=== PATIENT | female | born 1970 | race Two or more races ===

== ENCOUNTER 2017-04-20 10:35 | Outpatient (CLI) | payer OTHER ==
[~2017-04-20 10:35] MED LIST: ASA81 MG; CATAFLAM50 MG; FOLIC ACID0.4 MG; LOTREL 10-20 MG1 CAP; PREDNISOLONE5 GM; VITAMIN B COMPL
== END 2017-04-20 10:45 | disposition home or self-care (01) ==
LOC: SONOGRAMA 10:35
DX: R10.9 Unspecified abdominal pain (principal)

== ENCOUNTER 2017-05-05 12:34 | Inpatient (IN) | payer OTHER ==
[~2017-05-05] VITALS: Ht 162.6 cm; Wt 62.6 kg
[2017-05-05] MEDS ORDERED: SYNTHROID50 MCG (12:40)
[2017-05-07] MEDS ORDERED: AZITHROMYCIN500 MG PO (09:07)
[2017-05-07] MEDS ORDERED: FOLIC ACID1 MG PO (09:07)
[2017-05-07] MEDS ORDERED: HYDREA500 M1 PO (09:07)
[2017-05-07] MEDS ORDERED: ACETAMINOPHEN500 M1 PO (09:07)
[2017-05-07] MEDS ORDERED: LOTREL 10-20 M1 EACH PO (09:09)
== END 2017-05-07 10:36 | disposition home or self-care (01) | DRG 812 ==
LOC: ER 12:34 → MEDJ 05-06 08:02
PROC: 30233N1 Transfusion of Nonautologous Red Blood Cells into Peripheral Vein, Percutaneous Approach (ICD-10-PCS; principal; 2017-05-06)
DX: D57.819 Other sickle-cell disorders with crisis, unspecified (principal); R10.2 Pelvic and perineal pain

== ENCOUNTER 2018-01-24 07:27 | Outpatient (CLI) | payer OTHER ==
[~2018-01-24 07:27] MED LIST changes: +ACETAMINOPHEN500 M1 PO; +AZITHROMYCIN500 MG PO; +FOLIC ACID1 MG PO; +HYDREA500 M1 PO; +LOTREL 10-20 M1 EACH PO; +SYNTHROID50 MCG
== END 2018-01-24 07:33 | disposition home or self-care (01) ==
LOC: TOM 07:27
DX: D57.1 Sickle-cell disease without crisis (principal)
CPT/HCPCS: 74177; 77075; Q9965

== ENCOUNTER → 2018-01-26 | Outpatient (CLI) | payer OTHER | END | disposition home or self-care (01) | LOC: SONOGRAMA 08:00 | DX: D57.80 Other sickle-cell disorders without crisis (principal) ==

== ENCOUNTER 2018-08-08 08:03 | Outpatient (CLI) | payer OTHER | END 2018-08-08 09:51 | disposition home or self-care (01) | LOC: SONOGRAMA 08:03 | DX: E04.2 Nontoxic multinodular goiter (principal) ==

== ENCOUNTER 2018-08-24 07:14 | Outpatient (CLI) | payer OTHER | END 2018-08-24 09:22 | disposition home or self-care (01) | LOC: NUCLEAR 07:14 | DX: R00.2 Palpitations (principal); I20.8 Other forms of angina pectoris; R06.09 Other forms of dyspnea | CPT/HCPCS: 78452; 93017; A9500; J0153 ==

== ENCOUNTER 2018-09-12 11:32 | Outpatient (CLI) | payer OTHER | END 2018-09-12 15:00 | disposition home or self-care (01) | LOC: LAB 11:32 | DX: J11.1 Influenza due to unidentified influenza virus with other respiratory manifestations (principal); D64.0 Hereditary sideroblastic anemia; J44.9 Chronic obstructive pulmonary disease, unspecified ==

== ENCOUNTER → 2022-02-18 | Emergency (ER) | payer OTHER ==
[~2022-02-18] VITALS: Ht 162.6 cm; Wt 65.3 kg
== END | disposition home or self-care (01) ==
LOC: ER 15:57
DX: S82.032A Displaced transverse fracture of left patella, initial encounter for closed fracture (principal); W19.XXXA Unspecified fall, initial encounter; Y93.9 Activity, unspecified; Y92.019 Unspecified place in single-family (private) house as the place of occurrence of the external cause

== ENCOUNTER 2022-02-20 20:33 | Inpatient (IN) | payer OTHER ==
[~2022-02-20] VITALS: Ht 157.5 cm; Wt 64.4 kg
[2022-02-20] MEDS ORDERED: SYNTHROID50 MCG PO (22:04)
[2022-02-20] MEDS ORDERED: KETOROLAC TROME10 MG PO (22:04)
[2022-02-20] MEDS ORDERED: LISINOPRIL2.5 MG PO (22:04)
[2022-02-20] MEDS ORDERED: HYDROXYUREA500 MG PO (22:04)
--- NOTE | 2022-02-20 22:08 | NUR ---
SE RECIBE ALERTA X3.PTE REFIERE SENTIR MUCHO DOLOR EN LA PIERNA IZQUIERDA LOKESH DESDE HACE HARSHAL SEMANA.SE TIFFANY S/V Y SE UBICA.
--- NOTE | 2022-02-21 00:09 | NUR ---
PTE FEMENINA ALERTA Y ORIENTADA EN LAS CHRISTOPHER ESFERAS ES EVALUADA POR . SE ORIENTA SOBRE ORDENES DE [place] REFIERE COMPRENDER. SE COLECTAN MUESTRAS DE LABORATORIOS Y SE CANALIZA VENA BAJO MEDIDAS ASEPTICAS. SE ADMINISTRAN MEDICAMENTOS, BAJO MEDIDAS ASEPTICAS.
--- NOTE | 2022-02-21 00:30 | NUR ---
0015 SE CONTACTA A [facility] PARA CONCER HX DE PTE. REFIERE PTE NO POSEE HX. SE REQUIZAN 2 UNIDADES PRBC'S PARA TRANSFUSION POR ORDEN MEDICA DE . SE COELCTAN TUBOS PILOTOS, BAJO MEDIDAS ASEPTICAS. SE ROTULAN Y SE ENVIAN A LABORATORIO APC.
[2022-02-23] MEDS ORDERED: CETIRIZINE HCL10 MG (10:57)
[2022-02-25] MEDS ORDERED: DUI500 PO (07:35)
[2022-02-25] MEDS ORDERED: ASA325 M1 PO (07:35)
[2022-02-25] MEDS ORDERED: PERCOCET 5-3251 EACH PO (07:35)
== END 2022-02-25 15:02 | disposition home or self-care (01) | DRG 463 ==
LOC: ER 20:33 → SEC-K 02-21 00:41 → SURH 02-21 00:41
PROVIDERS: Orthopaedic Surgery; ADMIT Internal Medicine; ATTEND Internal Medicine
PROC: 30233N1 Transfusion of Nonautologous Red Blood Cells into Peripheral Vein, Percutaneous Approach (ICD-10-PCS; 2022-02-21)
PROC: 0QSF04Z Reposition Left Patella with Internal Fixation Device, Open Approach (ICD-10-PCS; 2022-02-24)
PROC: BQ18ZZZ Fluoroscopy of Left Knee (ICD-10-PCS; 2022-02-24)
PROC: 0JBP0ZZ Excision of Left Lower Leg Subcutaneous Tissue and Fascia, Open Approach (ICD-10-PCS; principal; 2022-02-24 12:00)
DX: S82.042A Displaced comminuted fracture of left patella, initial encounter for closed fracture (principal); D57.219 Sickle-cell/Hb-C disease with crisis, unspecified; M25.062 Hemarthrosis, left knee; M23.42 Loose body in knee, left knee; Z20.822 Contact with and (suspected) exposure to COVID-19

== ENCOUNTER 2022-07-28 10:33 | Outpatient (CLI) | payer OTHER ==
[~2022-07-28 10:33] MED LIST changes: +ASA325 M1 PO; +CETIRIZINE HCL10 MG; +DUI500 PO; +HYDROXYUREA500 MG PO; +KETOROLAC TROME10 MG PO; +LISINOPRIL2.5 MG PO; +PERCOCET 5-3251 EACH PO; +SYNTHROID50 MCG PO
== END 2022-07-28 10:37 | disposition home or self-care (01) ==
LOC: RAD 10:33
PROVIDERS: ATTEND Physical Medicine & Rehabilitation
DX: M17.12 Unilateral primary osteoarthritis, left knee (principal); M25.562 Pain in left knee

== ENCOUNTER 2023-03-05 16:07 | Inpatient (IN) | payer OTHER ==
[~2023-03-05] VITALS: Ht 162.6 cm; Wt 63.5 kg
[2023-03-05 17:35] LABS: HEMOGLOBIN 10.4 g/dL (12.0-15.00); MEAN CELL VOLUME 116.7 fL (80.00-100.00); MEAN CORPUSCULAR HEMOGLOBIN 40.6 pg (27.00-32.0); MEAN CORPUSCULAR HGB CONC 34.8 g/dl (32.0-36.0); PLATELET COUNT 252 K/uL (150-450); RED BLOOD COUNT 2.57 M/uL (4.00-6.00); RED CELL DISTRIBUTION WIDTH 15.8 % (11.5-14.5)
[2023-03-05 17:45] LABS: INR 1.02; PARTIAL THROMBOPLASTIN TIME 26.2 SECONDS (22.0-34.0); PROTHROMBIN TIME 10.7 SECONDS (9.0-11.5)
[2023-03-05 17:49] LABS: CALCIUM 8.6 mg/dL (8.5-10.1); CREATININE SERUM 0.57 mg/dL (0.55-1.02); GFR 111.82; POTASSIUM 4.12 mEq/L (3.5-5.1)
[2023-03-05 18:58] LABS: URINE APPEARANCE Clear; URINE BILIRRUBIN Negative (NEGATIVE); URINE BLOOD Negative; URINE COLOR Yellow; URINE GLUCOSE Negative (NEGATIVE); URINE LEUKOCYTE Negative; URINE NITRATE Negative; URINE PROTEIN Negative (NEGATIVE)
[2023-03-05 19:01] LABS: URINE BACTERIA 420.7 uL (0.0-1933); URINE EPITHELIAL CELLS 34.3 uL (0.0-38.8); URINE RBC 2.8 uL (0.0-20.8); URINE WBC 10.9 uL (0.0-23.2)
[2023-03-05 23:25] LABS: T4 FREE 1.05 NG/ML (0.76-1.46); TSH 1.26 uIU/mL (0.358-3.74)
[2023-03-07 08:48] LABS: BILIRUBIN TOTAL 1.08 mg/dL (0.3-1.2); CALCIUM 8.2 mg/dL (8.5-10.1); CREATININE SERUM 0.49 mg/dL (0.55-1.02); FERRITIN 114.4 NG/ML (8-252); GFR 133.14; GLOBULINA 3.6 G/DL (2.4-3.5); MAGNESIUM 2.2 mg/dL (1.8-2.4); PHOSPHOROUS 3.2 mg/dL (2.5-4.9); POTASSIUM 4.5 mEq/L (3.5-5.1); TOTAL PROTEIN 6.6 gm/dL (6.4-8.2)
[2023-03-07 08:51] LABS: C-REACTIVE PROTEIN 0.39 MG/DL (0.00-0.29)
[2023-03-07 09:34] LABS: MEAN CELL VOLUME 118.7 fL (80.00-100.00); MEAN CORPUSCULAR HGB CONC 34.1 g/dl (32.0-36.0); PLATELET COUNT 195 K/uL (150-450); RED BLOOD COUNT 2.02 M/uL (4.00-6.00); RED CELL DISTRIBUTION WIDTH 16.2 % (11.5-14.5)
[2023-03-07 09:36] LABS: HEMOGLOBIN 8.2 g/dL (12.0-15.00); MEAN CORPUSCULAR HEMOGLOBIN 40.5 pg (27.00-32.0)
[2023-03-07 09:57] LABS: ERYTHROCYTE SEDIMENTATION RATE 16 mm/hr
[2023-03-09 06:09] LABS: HEMATOCRIT 26.6 % (36.0-45.00); HEMOGLOBIN 9.3 g/dL (12.0-15.00); MEAN CELL VOLUME 119.2 fL (80.00-100.00); MEAN CORPUSCULAR HEMOGLOBIN 41.7 pg (27.00-32.0); MEAN CORPUSCULAR HGB CONC 34.9 g/dl (32.0-36.0); PLATELET COUNT 185 K/uL (150-450); RED BLOOD COUNT 2.23 M/uL (4.00-6.00); RED CELL DISTRIBUTION WIDTH 15.8 % (11.5-14.5)
[2023-03-09 06:49] LABS: ALBUMIN 3.4 gm/dL (3.4-5.0); BILIRUBIN TOTAL 1.58 mg/dL (0.3-1.2); CALCIUM 8.8 mg/dL (8.5-10.1); CREATININE SERUM 0.52 mg/dL (0.55-1.02); GFR 124.32; GLOBULINA 4.1 G/DL (2.4-3.5); POTASSIUM 4.11 mEq/L (3.5-5.1); TOTAL PROTEIN 7.5 gm/dL (6.4-8.2)
[2023-03-09] MEDS ORDERED: HYDREA500 M1 PO (12:57)
[2023-03-09] MEDS ORDERED: LEVOTHYROXINE50 MCG PO (12:57)
[2023-03-09] MEDS ORDERED: ZESTRIL10 M1 PO (12:58)
[2023-03-09] MEDS ORDERED: ELIQUIS5 MG PO (12:58)
[2023-03-09] MEDS ORDERED: TOPROL XL25 M1 PO (12:59)
== END 2023-03-09 14:00 | disposition home or self-care (01) | DRG 179 ==
LOC: ER 16:07 → MEDJ 20:14 → ICU-2 20:14 → MEDJ 03-06 11:26
PROVIDERS: General Practice; ADMIT Internal Medicine; ATTEND Internal Medicine
PROC: B24BZZZ Ultrasonography of Heart with Aorta (ICD-10-PCS; 2023-03-05)
PROC: 4A12X4Z Monitoring of Cardiac Electrical Activity, External Approach (ICD-10-PCS; 2023-03-06)
PROC: XW033E5 Introduction of Remdesivir Anti-infective into Peripheral Vein, Percutaneous Approach, New Technology Group 5 (ICD-10-PCS; principal; 2023-03-07)
DX: U07.1 COVID-19 (principal); I48.0 Paroxysmal atrial fibrillation; E03.9 Hypothyroidism, unspecified; D57.1 Sickle-cell disease without crisis; I11.9 Hypertensive heart disease without heart failure; D72.820 Lymphocytosis (symptomatic)

== ENCOUNTER 2024-12-22 08:00 | Outpatient (CLI) | payer OTHER ==
[~2024-12-22] VITALS: Ht 160 cm; Wt 63.5 kg
[~2024-12-22 08:00] MED LIST changes: +ELIQUIS5 MG PO; +LEVOTHYROXINE50 MCG PO; +TOPROL XL25 M1 PO; +ZESTRIL10 M1 PO
[2024-12-22 11:03] VITALS: BP 138/84
[2024-12-22 11:22] LABS: BASO % 0.5 % (0.1-1.2); EOS # 0.61 (0.04-0.54); EOS % 9.8 % (0.7-7.0); LYMPH # 3.32 (1.18-3.74); LYMPH % 53.5 % (19.3-53.1); MEAN PLATELET VOLUME 11.70 fl (9.4-12.4); MONO # 1.00 (0.24-0.82); NEUT # 1.23 (1.56-6.13); NEUT % 19.9 % (34.0-71.1); RED CELL DISTRIBUTION WIDTH 16.5 % (11.6-14.4)
[2024-12-22 11:26] LABS: URINE APPEARANCE Clear; URINE BILIRRUBIN Negative (NEGATIVE); URINE BLOOD Negative; URINE COLOR Yellow; URINE GLUCOSE Negative (NEGATIVE); URINE KETONE Negative (NEGATIVE); URINE LEUKOCYTE Trace; URINE NITRATE Negative; URINE PROTEIN Negative (NEGATIVE); URINE UROBILINOGEN 1.0 E.U./dl
[2024-12-22 11:29] LABS: MONO % 16.1 % (4.7-12.5); URINE BACTERIA 126.0 uL (0.0-1933); URINE EPITHELIAL CELLS 4.2 uL (0.0-38.8); URINE WBC 2.1 uL (0.0-23.2)
[2024-12-22 11:47] LABS: ALT/SGPT 29.0 U/L (12-78); AST/SGOT 47.0 U/L (15-37); BILIRUBIN TOTAL 1.59 mg/dL (0.3-1.2); BUN CREA RATIO 28.0 (7.0-25.0); CREATININE SERUM 0.61 mg/dL (0.55-1.02); GFR 102.99; GLOBULINA 4.3 G/DL (2.4-3.5); GLUCOSE FASTING 90.0 mg/dL (65-100); OSMOLALITY SERUM 282.0 MOSM/KG (275-295)
[2024-12-22 11:48] LABS: URINE CAST 0.00 uL (0.0-1.40); URINE RBC 1.3 uL (0.0-20.8)
[2024-12-22 11:52] LABS: INR 1.06
[2024-12-25] MEDS ORDERED: CEFAZOLIN SODIUM 1,000 MG VIAL ONE (13:03)
== END 2024-12-22 11:00 | disposition home or self-care (01) ==
LOC: RAD 08:00 → ADM 10:15 → RAD 11:00 → CIR.AMB 12-25 07:00 → EDSTATUS 12-25 10:15 → CIR.AMB 12-25 10:15
PROVIDERS: ATTEND Student in an Organized Health Care Education/Training Program
DX: C50.912 Malignant neoplasm of unspecified site of left female breast (principal); D65 Disseminated intravascular coagulation [defibrination syndrome]; I10 Essential (primary) hypertension

== ENCOUNTER 2024-12-22 19:55 | Inpatient (IN) | payer OTHER ==
[~2024-12-22] VITALS: Ht 160 cm; Wt 63.5 kg
--- NOTE | 2024-12-22 21:32 | NUR ---
PACIENTE EN COMPANIA DE FAMILIAR, LLEGA A GENOVEVA DE EMERGENCIAS POR REFERIDO MEDICO, DR URBINA TRAS PRESENTAR HEMOGLOBINA EN 7.6 PACIENTE CON HX DE SICKLE CELL Y RECIENTEMENTE DX CA SENO L+ SE MIDEN S/V Y SE UBICA.
[2024-12-22] MEDS ORDERED: ACETAMINOPHEN 500 MG GEL..CAP PO PRN (22:15)
[2024-12-22] MEDS ORDERED: 0.9 % SODIUM CHLORIDE 1,000 ML IV SCH (22:15)
[2024-12-23 04:56] LABS: BASO % 0.4 % (0.1-1.2); EOS # 0.74 (0.04-0.54); EOS % 10.1 % (0.7-7.0); LYMPH # 4.15 (1.18-3.74); LYMPH % 56.8 % (19.3-53.1); MEAN PLATELET VOLUME 11.40 fl (9.4-12.4); MONO # 0.96 (0.24-0.82); NEUT # 1.41 (1.56-6.13); NEUT % 19.3 % (34.0-71.1); RED CELL DISTRIBUTION WIDTH 16.2 % (11.6-14.4)
[2024-12-23 05:03] LABS: MONO % 13.1 % (4.7-12.5)
[2024-12-23 05:08] LABS: INR 1.05
[2024-12-23 05:30] LABS: ALT/SGPT 24.0 U/L (12-78); AST/SGOT 48.0 U/L (15-37); BILIRUBIN TOTAL 1.54 mg/dL (0.3-1.2); BUN CREA RATIO 32.0 (7.0-25.0); CREATININE SERUM 0.63 mg/dL (0.55-1.02); GFR 99.23; GLOBULINA 4.1 G/DL (2.4-3.5); GLUCOSE FASTING 99.0 mg/dL (65-100); OSMOLALITY SERUM 288.0 MOSM/KG (275-295)
[2024-12-23] MEDS ORDERED: LEVOTHYROXINE SODIUM 50 MCG TABLET PO SCH (06:00)
[2024-12-23 08:00] VITALS: BP 150/80; O2SAT 100
[2024-12-23] MEDS ORDERED: FAMOTIDINE/PF 20 MG in 0.9 % SODIUM CHLORIDE 8 ML IV PUSH SCH (09:00)
[2024-12-23] MEDS ORDERED: LISINOPRIL 10 MG TABLET PO SCH (09:00)
[2024-12-23] MEDS ORDERED: HYDROXYUREA 500 MG CAP PO SCH ×2 (09:00→17:00)
[2024-12-23] MEDS ORDERED: METHYLPREDNISOLONE SOD SUCC 40 MG VIAL IV NR (13:15)
[2024-12-23] MEDS ORDERED: DIPHENHYDRAMINE HCL 50 MG/ML VIAL 1ML IV NR (13:15)
[2024-12-23] MEDS ORDERED: METOPROLOL SUCCINATE 25 MG TAB.SR.24H PO STA (14:45)
[2024-12-23 15:56] VITALS: BP 154/72; O2SAT 100
[2024-12-23] MEDS ORDERED: ENOXAPARIN SODIUM 40 MG/0.4 ML SYRINGE SUBCUTANEO SCH (17:00)
[2024-12-24 00:03] VITALS: BP 121/74; O2SAT 97
[2024-12-24 07:55] LABS: BASO % 0.3 % (0.1-1.2); EOS # 0.00 (0.04-0.54); EOS % 0.0 % (0.7-7.0); LYMPH # 1.43 (1.18-3.74); LYMPH % 39.9 % (19.3-53.1); MEAN PLATELET VOLUME 12.10 fl (9.4-12.4); MONO # 0.12 (0.24-0.82); MONO % 3.4 % (4.7-12.5); NEUT # 2.01 (1.56-6.13); NEUT % 56.1 % (34.0-71.1)
[2024-12-24 08:00] VITALS: BP 127/72; O2SAT 99
[2024-12-24 08:15] LABS: RED CELL DISTRIBUTION WIDTH 21.9 % (11.6-14.4)
[2024-12-24] MEDS ORDERED: DIPHENHYDRAMINE HCL 50 MG/ML VIAL 1ML IV NR (08:45)
[2024-12-24] MEDS ORDERED: METOPROLOL SUCCINATE 25 MG TAB.SR.24H PO SCH (09:00)
[2024-12-24] MEDS ORDERED: METHYLPREDNISOLONE SOD SUCC 40 MG VIAL IV NR (13:15)
[2024-12-24 16:00] VITALS: BP 120/69; O2SAT 98
[2024-12-24 21:47] LABS: BASO % 0.1 % (0.1-1.2); EOS # 0.00 (0.04-0.54); EOS % 0.0 % (0.7-7.0); LYMPH # 1.70 (1.18-3.74); LYMPH % 14.3 % (19.3-53.1); MEAN PLATELET VOLUME 12.20 fl (9.4-12.4); MONO # 0.77 (0.24-0.82); MONO % 6.5 % (4.7-12.5); NEUT # 9.35 (1.56-6.13); NEUT % 78.5 % (34.0-71.1); RED CELL DISTRIBUTION WIDTH 22.2 % (11.6-14.4)
[2024-12-25 00:07] VITALS: BP 145/72; O2SAT 98
[2024-12-25 08:27] VITALS: BP 159/82; O2SAT 98
[2024-12-25] MEDS ORDERED: CEFAZOLIN SODIUM 1,000 MG VIAL IV ONE (14:15)
[2024-12-25] MEDS ORDERED: LIDOCAINE HCL 1%/EPINEPHRINE 20ML VIAL IJ ONE (14:15)
[2024-12-25] MEDS ORDERED: BUPIVACAINE HCL 30 ML VIAL IV ONE (14:15)
[2024-12-25] MEDS ORDERED: HEPARIN SODIUM,PORCINE 500 UNITS/5 ML VIAL IV ONE (14:15)
[2024-12-25] MEDS ORDERED: METOPROLOL SUCCINATE 25 MG TAB.SR.24H PO SCH (17:00)
[2024-12-25] MEDS ORDERED: LISINOPRIL 10 MG TABLET PO SCH (17:00)
[2024-12-25 20:40] VITALS: BP 132/81; O2SAT 99
[2024-12-25 21:08] VITALS: O2SAT 98
[2024-12-26 00:30] VITALS: BP 131/79; O2SAT 99
[2024-12-26 03:47] VITALS: O2SAT 87
[2024-12-26 08:35] VITALS: BP 107/73; O2SAT 97
[2024-12-26 08:51] VITALS: O2SAT 99
[2024-12-26] MEDS ORDERED: METOPROLOL SUCCINATE 25 MG TAB.SR.24H PO SCH (09:00)
[2024-12-26] MEDS ORDERED: APIXABAN 5 MG TABLET PO SCH (09:00)
[2024-12-26 14:00] VITALS: O2SAT 100
[2024-12-26] MEDS ORDERED: FAMOTIDINE/PF 20 MG in 0.9 % SODIUM CHLORIDE 8 ML IV PUSH SCH (21:00)
[2024-12-27] MEDS ORDERED: LISINOPRIL 10 MG TABLET PO SCH (09:00)
== END 2024-12-26 15:19 | disposition home or self-care (01) | DRG 803 ==
LOC: ER 19:55 → SEC-K 23:06 → SURH 23:06
PROVIDERS: General Practice; Student in an Organized Health Care Education/Training Program; ADMIT Internal Medicine; ATTEND Internal Medicine
PROC: 8E0ZXY6 Isolation (ICD-10-PCS; 2024-12-22)
PROC: 30233N1 Transfusion of Nonautologous Red Blood Cells into Peripheral Vein, Percutaneous Approach (ICD-10-PCS; 2024-12-23)
PROC: 05HM33Z Insertion of Infusion Device into Right Internal Jugular Vein, Percutaneous Approach (ICD-10-PCS; 2024-12-25)
PROC: B543ZZA Ultrasonography of Right Jugular Veins, Guidance (ICD-10-PCS; 2024-12-25)
PROC: B518YZA Fluoroscopy of Superior Vena Cava using Other Contrast, Guidance (ICD-10-PCS; 2024-12-25)
PROC: 4A12X4Z Monitoring of Cardiac Electrical Activity, External Approach (ICD-10-PCS; 2024-12-25)
PROC: 0JH60WZ Insertion of Totally Implantable Vascular Access Device into Chest Subcutaneous Tissue and Fascia, Open Approach (ICD-10-PCS; principal; 2024-12-25 12:00)
DX: D57.80 Other sickle-cell disorders without crisis (principal); I48.20 Chronic atrial fibrillation, unspecified; C50.919 Malignant neoplasm of unspecified site of unspecified female breast; D64.89 Other specified anemias; I10 Essential (primary) hypertension; E03.9 Hypothyroidism, unspecified; Z79.01 Long term (current) use of anticoagulants

== ENCOUNTER 2025-01-22 11:08 | Inpatient (IN) | payer OTHER ==
[~2025-01-22] VITALS: Ht 160 cm; Wt 63.5 kg
[2025-01-22] MEDS ORDERED: DEXAMETHASONE4 MG PO (13:12)
--- NOTE | 2025-01-22 13:13 | NUR ---
PTE REFIERE REFERIDO MEDICO DEL GIOVANI BERG PARA TRANSFUNDIR. SE LE MILAN S/V Y SE DOCUEMTA, SE UBICA EN [place] . PTE CON SICKLE CELL ANEMIA.
[2025-01-22] MEDS ORDERED: CYANOCOBALAMIN (VITAMIN B-12) 1,000 MCG TABLET PO SCH (14:05)
[2025-01-22] MEDS ORDERED: ENALAPRILAT DIHYDRATE 1.25 MG/ML VIAL IV PRN (14:15)
[2025-01-22 15:02] LABS: BASO % 0.3 % (0.1-1.2); EOS # 0.06 (0.04-0.54); EOS % 1.8 % (0.7-7.0); LYMPH # 2.34 (1.18-3.74); LYMPH % 70.9 % (19.3-53.1); MEAN PLATELET VOLUME 13.80 fl (9.4-12.4); MONO # 0.17 (0.24-0.82); MONO % 5.2 % (4.7-12.5); NEUT # 0.46 (1.56-6.13); NEUT % 13.9 % (34.0-71.1); RED CELL DISTRIBUTION WIDTH 18.5 % (11.6-14.4)
[2025-01-22 15:21] LABS: INR 1.08
[2025-01-22 15:23] LABS: ERYTHROCYTE SEDIMENTATION RATE 8 mm/hr (0-30)
[2025-01-22 15:24] VITALS: BP 130/80
[2025-01-22 15:26] LABS: ALT/SGPT 32 U/L (12-78); AST/SGOT 26 U/L (15-37); BILIRUBIN TOTAL 0.87 mg/dL (0.3-1.2); BUN CREA RATIO 43 (7.0-25.0); CREATININE SERUM 0.68 mg/dL (0.55-1.02); GFR 90.86; GLOBULINA 4.0 G/DL (2.4-3.5); GLUCOSE FASTING 104 mg/dL (65-100); LDH 295 U/L (84-246); OSMOLALITY SERUM 289 MOSM/KG (275-295)
[2025-01-22 15:59] VITALS: BP 120/69; O2SAT 100
[2025-01-22 16:17] LABS: BASOPHIL MAN 3.0 %; EOSINOPHIL MAN 2.0 %; LYMPHOCYTE MAN 80.0 %; MONOCYTE MAN 6.0 %; NEUTROPHILS MAN 5.0 %
[2025-01-22] MEDS ORDERED: HYDROXYUREA 500 MG CAP PO SCH (17:00)
[2025-01-23 01:01] VITALS: BP 104/66; O2SAT 99
[2025-01-23] MEDS ORDERED: LEVOTHYROXINE SODIUM 50 MCG TABLET PO SCH (06:00)
[2025-01-23 06:57] LABS: URINE APPEARANCE Clear; URINE BILIRRUBIN Negative (NEGATIVE); URINE BLOOD Negative; URINE COLOR Yellow; URINE GLUCOSE Negative (NEGATIVE); URINE KETONE Negative (NEGATIVE); URINE LEUKOCYTE Negative; URINE NITRATE Negative; URINE PROTEIN Negative (NEGATIVE); URINE UROBILINOGEN 0.2 E.U./dl
[2025-01-23 06:58] LABS: URINE BACTERIA 42.3 uL (0.0-1933); URINE CAST 0.28 uL (0.0-1.40); URINE EPITHELIAL CELLS 7.3 uL (0.0-38.8); URINE RBC 1.8 uL (0.0-20.8); URINE WBC 7.3 uL (0.0-23.2)
[2025-01-23 07:22] VITALS: BP 120/71; O2SAT 100
[2025-01-23] MEDS ORDERED: METOPROLOL SUCCINATE 25 MG TAB.SR.24H PO SCH (09:00)
[2025-01-23] MEDS ORDERED: FOLIC ACID 1 MG TABLET PO SCH (09:00)
[2025-01-23] MEDS ORDERED: PANTOPRAZOLE SODIUM 40 MG TABLET.DR PO SCH (09:00)
[2025-01-23 15:00] VITALS: BP 119/82; O2SAT 98
[2025-01-23] MEDS ORDERED: HYDROXYUREA 500 MG CAP PO SCH (17:00)
[2025-01-23 17:56] VITALS: BP 131/81; O2SAT 100
[2025-01-23 18:20] VITALS: BP 146/88; O2SAT 100
[2025-01-23] MEDS ORDERED: APIXABAN 5 MG TABLET PO SCH (20:55)
[2025-01-24] VITALS: BP 110/68; O2SAT 96
[2025-01-24 07:12] LABS: BASO % 1.2 % (0.1-1.2); EOS # 0.05 (0.04-0.54); EOS % 2.0 % (0.7-7.0); LYMPH # 2.01 (1.18-3.74); LYMPH % 79.1 % (19.3-53.1); MEAN PLATELET VOLUME 13.70 fl (9.4-12.4); MONO # 0.28 (0.24-0.82); MONO % 11.0 % (4.7-12.5); NEUT # 0.15 (1.56-6.13); NEUT % 5.9 % (34.0-71.1)
[2025-01-24 07:52] LABS: BAND MAN 3.0 %; EOSINOPHIL MAN 1.0 %; LYMPHOCYTE MAN 77.0 %; MONOCYTE MAN 6.0 %; NEUTROPHILS MAN 9.0 %; RED CELL DISTRIBUTION WIDTH 26.5 % (11.6-14.4)
[2025-01-24 07:53] LABS: ALT/SGPT 30.0 U/L (12-78); AST/SGOT 32.0 U/L (15-37); BILIRUBIN TOTAL 1.67 mg/dL (0.3-1.2); BUN CREA RATIO 28.0 (7.0-25.0); CREATININE SERUM 0.65 mg/dL (0.55-1.02); GFR 95.72; GLOBULINA 3.6 G/DL (2.4-3.5); GLUCOSE FASTING 92.0 mg/dL (65-100); OSMOLALITY SERUM 287.0 MOSM/KG (275-295)
[2025-01-24 08:00] VITALS: BP 121/79; O2SAT 88
== END 2025-01-24 14:19 | disposition home or self-care (01) | DRG 812 ==
LOC: ER 11:09 → ICU-2 13:53 → SURH 01-23 15:31
PROVIDERS: General Practice; ADMIT Internal Medicine; ATTEND Internal Medicine
PROC: 30233N1 Transfusion of Nonautologous Red Blood Cells into Peripheral Vein, Percutaneous Approach (ICD-10-PCS; principal; 2025-01-22)
DX: D64.9 Anemia, unspecified (principal); Z86.2 Personal history of diseases of the blood and blood-forming organs and certain disorders involving the immune mechanism; C50.912 Malignant neoplasm of unspecified site of left female breast; I48.0 Paroxysmal atrial fibrillation; I48.91 Unspecified atrial fibrillation